=== PATIENT | male | born 1985 | race Caucasian/White ===

== ENCOUNTER → 2021-01-15 | Outpatient (CLI) | payer OTHER | LOC: KOH-I 15:52 | DX: M54.50 Low back pain, unspecified (principal) | CPT/HCPCS: 72100 ==

== ENCOUNTER → 2021-02-06 | Outpatient (CLI) | payer OTHER | LOC: OPSV 12:15 | DX: U07.1 COVID-19 (principal); R53.83 Other fatigue; E86.0 Dehydration | CPT/HCPCS: 96360; 96361; J3411; J3475; J7030 ==

== ENCOUNTER → 2021-02-17 | Outpatient (CLI) | payer OTHER | LOC: NM 01-27 15:00 → HEART 5 02-12 08:30 | DX: R07.9 Chest pain, unspecified (principal) ==

== ENCOUNTER → 2021-05-04 | Outpatient (CLI) | payer OTHER | LOC: HEART 5 04-30 10:00 | DX: R55 Syncope and collapse (principal); R07.9 Chest pain, unspecified; R42 Dizziness and giddiness; I65.23 Occlusion and stenosis of bilateral carotid arteries | CPT/HCPCS: 93306; 93880 ==

== ENCOUNTER → 2021-05-12 | Outpatient (CLI) | payer OTHER | LOC: EXRD 08:00 | DX: R94.5 Abnormal results of liver function studies (principal) | CPT/HCPCS: 76705 ==

== ENCOUNTER 2021-06-02 20:21 | Emergency (ER) | payer OTHER ==
[2021-06-02 20:58] LABS: HEMOGLOBIN 14.8 gm/dl (14.0-17.5); RED BLOOD COUNT 5.19 M/UL (4.20-5.50)
[2021-06-02 21:33] LABS: BUN/CREATININE RATIO 7 (0-10)
[2021-06-03] MEDS ORDERED: LOMOTIL 2.5-0.1 EACH PO (04:14)
[2021-06-03] MEDS ORDERED: [UNRECOGNIZED DRUG - OTHER] (04:16)
[2021-06-03 21:59] LABS: ASTROVIRUS Not Detected (Negative); CAMPYLOBACTER Not Detected (Negative); CRYPTOSPORIDIUM Not Detected (Negative); E.COLI 0157 Not Detected (Negative); ENTAMOEBA HISTOLYTICA Not Detected (Negative); ENTEROAGGREGATIVE E.COLI (EAEC Not Detected (Negative); ENTEROPATHOGENIC E.COLI (EPEC) Not Detected (Negative); ENTEROTOXIGENIC E.COLI (ETEC) Not Detected (Negative); GIARDIA LAMBLIA Not Detected (Negative); NOROVIRUS GI/GII Not Detected (Negative); PLESIOMONAS SHIGELLOIDES Not Detected (Negative); ROTOVIRUS A Not Detected (Negative); SALMONELLA Not Detected (Negative); SAPOVIRUS Not Detected (Negative); SHIG/ENTEROINVAS.ECOLI (EIEC) Not Detected (Negative); SHIGA-LIK TOX.PRO.E.COLI (STEC Not Detected (Negative); VIBRIO Not Detected (Negative); VIBRIO CHOLERAE Not Detected (Negative); YERSINIA ENTEROCOLITICA Not Detected (Negative)
[2021-06-04 09:10] LABS: ADENOVIRUS F 40/41 DETECTED (Negative); CLOSTRIDIUM DIFFICILE TOX A/B Not Detected (Negative)
== END 2021-06-03 04:33 | disposition home or self-care (01) ==
LOC: ER1 20:21
PROVIDERS: Family Medicine; Nurse Practitioner
DX: R19.7 Diarrhea, unspecified (principal); Z20.822 Contact with and (suspected) exposure to COVID-19; K21.9 Gastro-esophageal reflux disease without esophagitis; Z88.8 Allergy status to other drugs, medicaments and biological substances
CPT/HCPCS: 0240U; 71045; 80053; 81001; 82150; 82550; 82553; 83690; 83874; 84484; 85025; 87507; 93005; 96374; 96375; 99284; J1885; J2405

== ENCOUNTER → 2021-09-16 | Outpatient (CLI) | payer OTHER ==
[~2021-09-16] MED LIST: LOMOTIL 2.5-0.1 EACH PO; [UNRECOGNIZED DRUG - OTHER]
== END ==
LOC: KOH-I 15:45
DX: R91.1 Solitary pulmonary nodule (principal)
CPT/HCPCS: 71250

== ENCOUNTER → 2021-11-03 | Day surgery (SDC) | payer OTHER ==
[~2021-11-03] MED LIST changes: +ABILIFY2 MG PO; +ACID CONTROLLER20 MG PO; +COENZYME Q10100 MG PO; +DAILY VALUE1 EACH PO; +DESYREL 50 MG T50 MG PO; +INDERAL TAB 1010 MG PO; +KLONOPIN TAB 00.5 MG PO; +LEVOTHYROXINE50 MC1 PO; +PROBIOTIC; +SERTRALINE HCL50 MG PO; +XYZAL5 MG PO
== END | disposition home or self-care (01) ==
LOC: OR 06:38
DX: R19.7 Diarrhea, unspecified (principal); K31.9 Disease of stomach and duodenum, unspecified; K21.00 Gastro-esophageal reflux disease with esophagitis, without bleeding; K29.60 Other gastritis without bleeding; K64.0 First degree hemorrhoids; R79.89 Other specified abnormal findings of blood chemistry; E66.3 Overweight; Z68.30 Body mass index [BMI] 30.0-30.9, adult; Z80.0 Family history of malignant neoplasm of digestive organs
CPT/HCPCS: J2704; J7040